=== PATIENT | male | born 1950 | race Two or more races ===

== ENCOUNTER → 2023-08-26 | Emergency (ER) | payer MEDICARE, MEDICAID ==
[~2023-08-26] VITALS: Ht 162.6 cm; Wt 72.7 kg
[2023-08-26 12:40] VITALS: BP 142/88; PULSE 66; RESP 18; TEMP 98.3
== END | disposition still patient (30) ==
LOC: EMS 12:31
DX: R33.9 Retention of urine, unspecified (principal); Z53.21 Procedure and treatment not carried out due to patient leaving prior to being seen by health care provider
CPT/HCPCS: 99281; Z7502